=== PATIENT | female | born 1970 | race African-American/Black ===

== ENCOUNTER 2025-06-08 23:02 | Emergency (ER) | payer OTHER ==
[2025-06-08 23:12] VITALS: TEMP 97.9
--- NOTE | 2025-06-08 23:37 | ED ---
Recheck HPI - General Chief Complaint: Recheck/Abnormal Lab/Rx Stated Complaint: hypertension Time Seen by Provider: 06/08/25 23:35 Source: EMS, RN notes reviewed, old records reviewed Mode of arrival: EMS Limitations: no limitations - History of Present Illness Initial Comments: This is a 54-year-old female to the ER for evaluation of severe hypertension, patient coming from [place] today. Patient is at [place] for alcoholism MD Complaint: other (Severe hypertension) -: unknown Returns Today for: Called Because of Abnormal Lab/Test (Abnormal blood pressure) Symptoms Since Prior Visit: no new symptoms Associated Symptoms: none - Related Data Allergies Allergy/AdvReac Type Severity Reaction Status Date / Time No Known Allergies Allergy Verified 06/08/25 23:12 Review of Systems ROS Statement: Those systems with pertinent positive or pertinent negative responses have been documented in the HPI. ROS Other: All systems not noted in ROS Statement are negative. Past Medical History Past Medical History: Hypertension History of Any Multi-Drug Resistant Organisms: None Reported Past Surgical History: No Surgical Hx Reported Past Psychological History: No Psychological Hx Reported Smoking Status: Current every day smoker Past Alcohol Use History: Abuse, Daily, Heavy Past Drug Use History: None Reported General Exam Limitations: no limitations General appearance: alert, in no apparent distress Head exam: Present: atraumatic, normocephalic, normal inspection Eye exam: Present: normal appearance, PERRL, EOMI. Absent: scleral icterus, conjunctival injection, periorbital swelling ENT exam: Present: normal exam, mucous membranes moist Neck exam: Present: normal inspection. Absent: tenderness, meningismus, lymphadenopathy Respiratory exam: Present: normal lung sounds bilaterally. Absent: respiratory distress, wheezes, rales, rhonchi, stridor Cardiovascular Exam: Present: regular rate, normal rhythm, normal heart sounds. Absent: systolic murmur, diastolic murmur, rubs, gallop, clicks GI/Abdominal exam: Present: soft, normal bowel sounds. Absent: distended, tenderness, guarding, rebound, rigid Extremities exam: Present: normal inspection, full ROM, normal capillary refill. Absent: tenderness, pedal edema, joint swelling, calf tenderness Back exam: Present: normal inspection Neurological exam: Present: alert, oriented X3, CN II-XII intact Psychiatric exam: Present: normal affect, normal mood Skin exam: Present: warm, dry, intact, normal color. Absent: rash Course Vital Signs 06/08/25 06/09/25 23:09 02:08 Temperature 97.9 F Pulse Rate 77 84 Respiratory 18 17 Rate Blood Pressure 195/127 165/103 O2 Sat by Pulse 98 Oximetry - Reevaluation(s) Reevaluation #1: 06/09/25 00:22 Medical records reviewed Reevaluation #2: 06/09/25 02:40 Blood pressure was improved in the ER Reevaluation #3: 06/09/25 02:41 Patient informed of results questions answered Reevaluation #4: Was pt. sent in by a medical professional or institution (, [facility], [employer], urgent care, hospital, or penitentiary...) When possible be specific @ -no Did you speak to anyone other than the patient for history (EMS, parent, family, police, friend...)? What history was obtained from this source @ -no Did you review nursing and triage notes (agree or disagree)? Why? @ -agree Are old charts reviewed (outside hosp., previous admission, EMS record, old EKG, old radiological studies, urgent care reports/EKG's, penitentiary records)? Report findings @ -yes Differential Diagnosis (chest pain, altered mental status, abdominal pain women, abdominal pain men, vaginal bleeding, weakness, fever, dyspnea, syncope, headache, dizziness, GI bleed, back pain, seizure, CVA, palpatations, mental health, musculoskeletal)? @ -prior EKG interpreted by me (3pts min.). @ -yes X-rays interpreted by me (1pt min.). @ -yes negative for acute disease CT interpreted by me (1pt min.). @ -no U/S interpreted by me (1pt. min.). @ -no What testing was considered but not performed or refused? (CT, X-rays, U/S, labs)? Why? @ -none What meds were considered but not given or refused? Why? @ -none Did you discuss the management of the patient with other professionals ( professionals i.e. [facility], [employer], lab, RT, psych nurse, social service coordinator, police commanding officer, teacher, chief business development officer, test case developer)? Give summary @ -no Was smoking cessation discussed for >3mins.? @ -no Was critical care preformed (if so, how long)? @ -no Were there social determinants of health that impacted care today? How? (Homelessness, low income, unemployed, alcoholism, drug addiction, transportation, low edu. Level, literacy, decrease access to med. care, care home, rehab)? @ -none Was there de-escalation of care discussed even if they declined (Discuss DNR or withdrawal of care, Hospice)? DNR status @ -no What co-morbidities impacted this encounter? (DM, HTN, Smoking, COPD, CAD, Cancer, CVA, ARF, Chemo, Hep., AIDS, mental health diagnosis, sleep apnea, morbid obesity)? @ -none Was patient admitted / discharged? Hospital course, mention meds given and route, prescriptions, significant lab abnormalities, going to OR and other pertinent info. @ - Undiagnosed new problem with uncertain prognosis? @ -no Drug Therapy requiring intensive monitoring for toxicity (Heparin, Nitro, Insulin, Cardizem)? @ -no Were any procedures done? @ -no Diagnosis/symptom? @ - Acute, or Chronic, or Acute on Chronic? @ -Acute Uncomplicated (without systemic symptoms) or Complicated (systemic symptoms)? @ -Complicated Side effects of treatment? @ -no Exacerbation, Progression, or Severe Exacerbation? @ -exacerbation Poses a threat to life or bodily function? How? (Chest pain, USA, ND, pneumonia, PE, COPD, DKA, ARF, appy, cholecystitis, CVA, Diverticulitis, Homicidal, Suicidal, threat to staff... and all critical care pts) @ -yes Reevaluation #5: Differential Mental Health Depression, anxiety, bipolar, psychosis, schizophrenia, borderline personality, situational depression, adjustment disorder, behavioral disorder, brain tumor, malingering, substance abuse, encephalopathy, medication reaction, dementia, hypothyroidism, degenerative neurologic disorder, lupus.... This is not meant to be all-inclusive list Medical Decision Making - Medical Decision Making 54 female for hypertension, hypertensive urgency, no acute findings symptoms improved patient can be discharged home - Lab Data Result diagrams: 06/09/25 01:10 06/09/25 00:19 Lab Results 06/09/25 06/09/25 06/09/25 Range/Units 00:19 00:19 01:10 WBC 3.58 L (4.50-10.00) 10*3/uL RBC 2.59 L (4.10-5.20) 10*6/uL Hgb 9.7 L (12.0-15.0) g/dL Hct 28.4 L (37.2-46.3) % MCV 109.7 H (80.0-97.0) fL MCH 37.5 H (27.0-32.0) pg MCHC 34.2 (32.0-37.0) g/dL Plt Count 145 (140-440) 10*3/uL MPV 12.7 H (9.5-12.2) fL Immature Gran % (Auto) 0.3 % Immature Gran # 0.01 (0.00-0.04) 10*3/uL Sodium 136 L (137-145) mmol/L Potassium 3.8 (3.5-5.1) mmol/L Chloride 106 (98-107) mmol/L Carbon Dioxide 21 L (22-30) mmol/L Anion Gap 9 mmol/L BUN 6 L (7-17) mg/dL Creatinine 0.37 L (0.52-1.04) mg/dL Est GFR (CKD-EPI)AfAm >90 (>60 ml/min/1.73 sqM) Est GFR (CKD-EPI)NonAf >90 (>60 ml/min/1.73 sqM) Glucose 92 (74-99) mg/dL Calcium 8.9 (8.4-10.2) mg/dL Phosphorus 3.8 (2.5-4.5) mg/dL Magnesium 1.3 L (1.6-2.3) mg/dL Total Bilirubin 0.5 (0.2-1.3) mg/dL AST 95 H (14-36) U/L ALT 54 H (4-34) U/L Alkaline Phosphatase 200 H (38-126) U/L Troponin I <0.012 (0.000-0.034) ng/mL NT-Pro-B Natriuret Pep 256 pg/mL Total Protein 6.5 (6.3-8.2) g/dL Albumin 3.8 (3.5-5.0) g/dL Lipase 356 H (23-300) U/L Serum Alcohol <10 mg/dL - EKG Data -: EKG Interpreted by Me (EKG is sinus 74 CO 170 QRS 77 QTc 421) Disposition Clinical Impression: Hypertension Disposition: HOME SELF-CARE Condition: Good Instructions (If sedation given, give patient instructions): Hypertension (ED) Is patient prescribed a controlled substance at d/c from ED?: No Referrals: None,Stated [Primary Care Provider] - 1-2 days Time of Disposition: 02:30
[2025-06-08] MEDS: SODIUM CHLORIDE 0.9% 1,000 ML IV ONE (23:57)
[2025-06-08] MEDS: LORazepam 1 MG/0.5 ML VIAL IV STA (23:57)
[2025-06-08] MEDS: ONDANSETRON 4 MG/2 ML VIAL IVP STA (23:57)
[2025-06-08] MEDS: cloNIDine 0.2 MG/24HR PATCH TRANSDERM STA (23:58)
[2025-06-09 01:04] LABS: ALT 54 U/L (4-34); AST 95 U/L (14-36); African American GFR (CKD) >90 (>60 ml/min/1.73 sqM); Albumin 3.8 g/dL (3.5-5.0); Alkaline Phosphatase 200 U/L (38-126); Anion Gap 9 mmol/L; Blood Urea Nitrogen 6 mg/dL (7-17); Calcium 8.9 mg/dL (8.4-10.2); Carbon Dioxide 21 mmol/L (22-30); Chloride 106 mmol/L (98-107); Glucose 92 mg/dL (74-99); Lipase 356 U/L (23-300); Magnesium 1.3 mg/dL (1.6-2.3); Non-African American GFR(CKD) >90 (>60 ml/min/1.73 sqM); Potassium 3.8 mmol/L (3.5-5.1); Sodium 136 mmol/L (137-145); Total Protein 6.5 g/dL (6.3-8.2)
[2025-06-09 01:13] LABS: NT-Pro-B-Type Natriuretic Pept 256 pg/mL
[2025-06-09 02:10] VITALS: RESP 17
[2025-06-09 02:11] LABS: Basophils # (A) 0.02 10*3/uL (0.00-0.10); Basophils % (A) 0.6 %; Eosinophils # (A) 0.02 10*3/uL (0.04-0.35); Eosinophils % (A) 0.6 %; HCT 28.4 % (37.2-46.3); HGB 9.7 g/dL (12.0-15.0); Lymphocytes # (A) 1.49 10*3/uL (0.90-5.00); Lymphocytes % (A) 41.6 %; MCH 37.5 pg (27.0-32.0); MCHC 34.2 g/dL (32.0-37.0); MCV 109.7 fL (80.0-97.0); Monocytes # (A) 0.49 10*3/uL (0.20-1.00); Monocytes % (A) 13.7 %; Neutrophils # (A) 1.55 10*3/uL (1.80-7.70); Neutrophils % (A) 43.2 %; Platelet Count 145 10*3/uL (140-440); RBC 2.59 10*6/uL (4.10-5.20); RDW 14.8 % (11.5-14.5); WBC 3.58 10*3/uL (4.50-10.00)
[2025-06-09] MEDS: POTASSIUM BICARBONATE/CIT AC 20 MEQ TABLET.EFF PO ONE (02:13)
[2025-06-09] MEDS: MAGNESIUM OXIDE 400 MG TAB PO STA ×2 (02:14)
[2025-06-09] MEDS: LABETALOL 5 MG/ML VIAL MDV IVP STA (02:18)
[2025-06-09] MEDS: SODIUM CHLORIDE 0.9% 500 ML 500 ML IV ONE (02:22)
[2025-06-09 03:02] VITALS: BP 189/100; PULSE 74
== END 2025-06-09 03:33 | disposition home or self-care (01) ==
LOC: EC 23:02
DX: I10 Essential (primary) hypertension (principal); F17.200 Nicotine dependence, unspecified, uncomplicated
CPT/HCPCS: 36415; 93005; 83880; 80053; 83690; 83735; 84100; 84484; 85025; 99283; 96374; 96375 ×2; 96361; G0480; J2060; J2405; J1920; 80320